=== PATIENT | female | born 1955 | race Caucasian/White ===

== ENCOUNTER 2023-01-02 16:58 | Emergency (ER) | payer MEDICARE, OTHER ==
[~2023-01-02] VITALS: Ht 152.4 cm; Wt 74.1 kg
[~2023-01-02 16:58] MED LIST: ASPI-556 PO; HYDR25TA2 PO; LOSA-382 PO
[2023-01-02 17:27] VITALS: TEMP 98.9
[2023-01-02] MEDS ORDERED: POTA8CAP20 PO (19:54)
[2023-01-02] MEDS ORDERED: CHOL200059 PO (19:54)
[2023-01-02] MEDS ORDERED: FAMO20 PO (19:54)
[2023-01-02] MEDS ORDERED: VALS160T31 PO (19:54)
[2023-01-02] MEDS ORDERED: METO100T14 PO (19:54)
[2023-01-02] MEDS ORDERED: ASPI-1444 PO (19:54)
[2023-01-02] MEDS ORDERED: ROSU40TA70 PO (19:54)
[2023-01-02] MEDS ORDERED: FURO20TA4 PO (19:54)
[2023-01-02] MEDS ORDERED: NIFE-78 PO (19:54)
[2023-01-02] MEDS ORDERED: MORPHINE SULFATE 4 MG/ML SYRINGE IM ONE (20:00)
[2023-01-02 21:21] VITALS: BP 143/73; PULSE 70; RESP 16
== END 2023-01-02 21:23 | disposition home or self-care (01) ==
LOC: EMS 17:00
DX: M54.31 Sciatica, right side (principal); I10 Essential (primary) hypertension; Z90.49 Acquired absence of other specified parts of digestive tract; Z98.890 Other specified postprocedural states
CPT/HCPCS: 99283; 96372; J2270